=== PATIENT | male | born 1965 | race Two or more races ===

== ENCOUNTER 2018-07-16 14:01 | Emergency (ER) | payer SELFPAY ==
[2018-07-16 14:08] VITALS: TEMP 98.2
[2018-07-16] MEDS ORDERED: LORAZEPAM 0.5 MG TAB PO ONE (14:27)
[2018-07-16] MEDS ORDERED: SODIUM CHLORIDE 0.9% 1000ML 1,000 ML IV ONE ×2 (14:27→16:25)
[2018-07-16 15:57] LABS: BLOOD UREA NITROGEN 14 mg/dl (7-18); CALCIUM 8.5 mg/dl (8.5-10.1); CARBON DIOXIDE 25.1 mEq/L (21-32); CHLORIDE 102 mMol/L (98-107); CREATININE 0.79 mg/dl (0.80-1.30); GLUCOSE 180 mg/dl (74-106); SODIUM 136 mMol/L (136-145)
[2018-07-16 16:05] LABS: BASOPHILS % (AUTO) 1 % (0-3); EOSINOPHILS % (AUTO) 0 % (0-9); HEMATOCRIT 49 % (39-53); HEMOGLOBIN 16.4 gm/dl (13.5-17.7); LYMPHOCYTES % (AUTO) 18.1 % (10-50); MEAN CORPUSCULAR HEMOGLOBIN 31.6 pg (27.0-32.0); MEAN CORPUSCULAR HGB CONC 33.4 gm/dl (32.0-36.0); MEAN CORPUSCULAR VOLUME 95 fL (80-100); MONOCYTES % (AUTO) 8.4 % (0-12); NEUTROPHILS % (AUTO) 72.2 % (37-80)
[2018-07-16 16:10] LABS: ALCOHOL < 0.003 gm/dl (0.000-0.08)
[2018-07-16 16:14] LABS: AMPHETAMINES POSITIVE (NEGATIVE); BARBITUATES NEGATIVE (NEGATIVE); BENZODIAZEPINES NEGATIVE (NEGATIVE); CANNABINOL(THC) POSITIVE (NEGATIVE); COCAINE(COC) NEGATIVE (NEGATIVE); METHADONE NEGATIVE (NEGATIVE); METHAMPHETAMINES POSITIVE (NEGATIVE); OPIATES(OPI) NEGATIVE (NEGATIVE); OXYCODONE(OXY) NEGATIVE (NEGATIVE); PROPOXYPHENE(PPX) NEGATIVE (NEGATIVE); TRICYCLIC ANTIDEPRESSANTS NEGATIVE (NEGATIVE)
[2018-07-16 16:30] VITALS: RESP 20
[2018-07-16 16:35] LABS: ABG PH 7.37 (7.35-7.45)
[2018-07-16] MEDS ORDERED: NALOXONE HYDROCHLORIDE 0.4 MG/ML SOL ONE (16:44)
[2018-07-16] MEDS ORDERED: NALOXONE HYDROCHLORIDE 0.4 MG/ML SOL IV ONE (16:44)
[2018-07-16] MEDS ORDERED: SUCCINYLCHOLINE CHLORIDE 20 MG/ML SOL IV ONE (17:22)
[2018-07-16] MEDS ORDERED: ETOMIDATE 2 MG/ML SOL IV ONE (17:22)
[2018-07-16 17:48] VITALS: BP 155/103; PULSE 117; O2SAT 99
== END 2018-07-16 18:20 | disposition short-term general hospital (02) | DRG 948 ==
LOC: ED 14:01
DX: R41.82 Altered mental status, unspecified (principal); I10 Essential (primary) hypertension; E11.9 Type 2 diabetes mellitus without complications; R42 Dizziness and giddiness; M25.532 Pain in left wrist; M25.572 Pain in left ankle and joints of left foot; F12.90 Cannabis use, unspecified, uncomplicated; F15.90 Other stimulant use, unspecified, uncomplicated
CPT/HCPCS: 36415; 36600; 70450; 71045; 73070; 73100; 80048; 80305; 80307; 82803; 82962; 84484; 85025; 93005; 96365; 96366; 96374; 99291; 99292; J0330; J2310; A9270-GY